=== PATIENT | female | born 1955 | race Caucasian/White ===

== ENCOUNTER 2016-07-31 15:39 | Emergency (ER) | payer OTHER ==
[2016-07-31] MEDS ORDERED: NEOMYCIN SU/BACITRAC ZN/POLY 1 EACH OINT.PACK TP ONE (16:04)
[2016-07-31] MEDS ORDERED: ALPRAZOLAM 0.5 MG TABLET PO ONE (16:04)
[2016-07-31 16:06] VITALS: BP 126/80
--- NOTE | 2016-07-31 16:50 | ED Physician Documentation ---
General Adult - HISTORIAN Historian: patient - HPI Stated Complaint: laceration Chief Complaint: Laceration/Recheck/Suture Additional Information: cut hand on glass while washing it Onset: minutes (30) Timing: still present Severity: moderate Modifying Factors: none Context: washing glass Quality: moderate Location: right hand Further Comments: no - ROS CONST: no problems EYES/ENT: none CVS/RESP: none GI/: none MS/SKIN/LYMPH: other (laceration right hand) NEURO/PSYCH: denies: headache, fainting, dizziness, tingling, numbness, difficulty walking, difficulty with speech, anxiety, depression - PAST HX Past History: hypertension, other (anxiety, depression) Surgeries/Procedures: BTL, other (appy, t and a) Immunizations: UTD Allergies/Adverse Reactions: Allergies Allergy/AdvReac Type Severity Reaction Status Date / Time Penicillins Allergy Rash Verified 07/31/16 15:59 Home Medications: Ambulatory Orders Medication Instructions Recorded Bupropion HCl [Wellbutrin] 75 mg PO DAILY 07/31/16 Hydrochlorothiazide [Hydrodiuril] 25 mg PO DAILY 07/31/16 Metoprolol Succinate [Toprol XL] 25 mg PO DAILY 07/31/16 Omeprazole [Omeprazole] 20 mg PO DAILY 07/31/16 PARoxetine HCL [Paxil] 10 mg PO QD 07/31/16 - SOCIAL HX Smoking History: cigarettes Alcohol Use: none Drug Use: none - FAMILY HX Family History: Yes - VITAL SIGNS Vital Signs: Vital Signs Temp Pulse Resp BP Pulse Ox 98.1 F 87 20 126/80 97 07/31/16 16:01 07/31/16 16:01 07/31/16 16:01 07/31/16 16:01 07/31/16 16:01 - REVIEWED ASSESSMENTS Nursing Assessment Reviewed: Yes Vitals Reviewed: Yes Procedures Wound Location: upper extremity (hand) Wound Length: 4 cm Wound's Depth, Shape: into muscle, flap Wound Explored: no foreign body removed Irrigated w/ Saline (ccs): 500 Betadine Prep?: No (surgical soap) Anesthesia: 2% Lidocaine Volume of Anesthetic: 8 cc Wound Debrided: none Wound Repaired With: sutures Suture Size/Type: 3:0, proline Number of Sutures: 6 Layer Closure?: No Sterile Dressing Applied?: Yes Splint Applied?: No Sling Applied?: No Progress - Results/Orders Results/Orders: no testing ordered - Progress Progress: pt. tolerated procedure well, no complications Critical Care Note - Critical Care Note Total Time (mins): 0 ED Results Lab/Radiology - Lab Results Lab Results: none ordered - Radiology Radiology Impressions: none ordered - Orders Orders: ED Orders Category Date Time Status Apply/change dressing 1T Care 07/31/16 16:04 Ordered Alprazolam [Xanax] Med 07/31/16 16:04 Once 0.5 mg PO NOW ONE Neomycin Rider/Bacitrac Zn/Poly [Triple Antibiotic Med 07/31/16 16:04 Once Ointment] 1 each TP NOW ONE General Adult Physical Exam - PHYSICAL EXAM GENERAL APPEARANCE: mild distress EENT: eye inspection normal, ENT inspection normal, pharynx normal, no signs of dehydration, COY, no nystagmus, TM's nml NECK: normal inspection, thyroid normal, supple RESPIRATORY: no resp distress, chest non-tender, breath sounds normal CVS: reg rate & rhythm, heart sounds normal, equal pulses ABDOMEN: soft, no organomegaly, normal bowel sounds, no abdominal bruit, no distension, non-tender BACK: normal inspection, no CVA tenderness SKIN: warm/dry, normal color EXTREMITIES: non-tender, normal range of motion, no evidence of injury, no edema NEURO: oriented X3, CN's nml as tested, motor nml, sensation nml, mood/affect nml, cognition normal Discharge Clincal Impression: Laceration Referrals: Primary Doctor,No [Primary Care Provider] - 2 Days Home Medications: Ambulatory Orders Bupropion HCl [Wellbutrin] 75 mg PO DAILY 07/31/16 Hydrochlorothiazide [Hydrodiuril] 25 mg PO DAILY 07/31/16 Metoprolol Succinate [Toprol XL] 25 mg PO DAILY 07/31/16 Omeprazole [Omeprazole] 20 mg PO DAILY 07/31/16 PARoxetine HCL [Paxil] 10 mg PO QD 07/31/16 Comments: discharged home with aftercare instructions Condition: Stable Disposition: 01 HOME, SELF-CARE Decision to Admit: NO Decision Time: 16:40
== END 2016-07-31 16:45 | disposition home or self-care (01) ==
LOC: ED 15:39
DX: S61.411A Laceration without foreign body of right hand, initial encounter (principal); W25.XXXA Contact with sharp glass, initial encounter; Y93.9 Activity, unspecified; Y99.9 Unspecified external cause status
CPT/HCPCS: 12002; 99283